=== PATIENT | female | born 1970 ===

== ENCOUNTER 2022-02-13 13:39 | Outpatient (CLI) | payer OTHER | END 2022-02-13 13:57 | disposition home or self-care (01) | LOC: MAMO-SONO 13:39 | PROVIDERS: ATTEND Obstetrics & Gynecology | DX: N60.11 Diffuse cystic mastopathy of right breast (principal); N60.12 Diffuse cystic mastopathy of left breast ==

== ENCOUNTER 2022-02-15 09:21 | Outpatient (CLI) | payer OTHER | END 2022-02-15 09:37 | disposition home or self-care (01) | LOC: MRI 09:21 | PROVIDERS: ATTEND Specialist | DX: C54.1 Malignant neoplasm of endometrium (principal) | CPT/HCPCS: 72197 ==